=== PATIENT | male | born 1985 | race Caucasian/White ===

== ENCOUNTER 2018-11-06 20:36 | Emergency (ER) | payer MEDICAID ==
[~2018-11-06] VITALS: Ht 172.7 cm; Wt 72.7 kg
[~2018-11-06 20:36] MED LIST: NOCURR
[2018-11-06 21:16] VITALS: BP 163/102
[2018-11-06] MEDS ORDERED: IBUPROFEN 600 MG TABLET PO ONE (23:15)
[2018-11-06] MEDS ORDERED: CLINDAMYCIN HCL 150 MG CAPSULE PO ONE (23:15)
== END 2018-11-06 23:25 | disposition home or self-care (01) ==
LOC: EMS 20:37
DX: L03.113 Cellulitis of right upper limb (principal); F11.90 Opioid use, unspecified, uncomplicated

== ENCOUNTER 2018-11-28 22:58 | Emergency (ER) | payer MEDICAID ==
[~2018-11-28] VITALS: Ht 172.7 cm; Wt 93.2 kg
[2018-11-28 23:54] VITALS: BP 127/87
[2018-11-29] MEDS ORDERED: SULFAMETHOX/TRIMETH DS 800-160 MG/TABLET PO ONE
== END 2018-11-29 00:17 | disposition home or self-care (01) ==
LOC: EMS 22:58
DX: L02.413 Cutaneous abscess of right upper limb (principal); L03.113 Cellulitis of right upper limb; R07.0 Pain in throat; F11.90 Opioid use, unspecified, uncomplicated

== ENCOUNTER 2019-01-16 23:11 | Emergency (ER) | payer MEDICAID ==
[~2019-01-16] VITALS: Ht 172.7 cm; Wt 97.7 kg
[2019-01-16 23:51] VITALS: BP 132/80
[2019-01-17] MEDS ORDERED: SULFAMETHOX/TRIMETH DS 800-160 MG/TABLET PO ONE
[2019-01-17] MEDS ORDERED: CefTRIAXone SODIUM 1 GM/VIAL IM ONE
[2019-01-17] MEDS ORDERED: LIDOCAINE/PF 1% 2 ML VIAL IM ONE
== END 2019-01-17 00:05 | disposition home or self-care (01) ==
LOC: EMS 23:14
DX: L03.115 Cellulitis of right lower limb (principal); F11.90 Opioid use, unspecified, uncomplicated
CPT/HCPCS: 96372; 99283; J0696; J3490